=== PATIENT | male | born 1990 | race Two or more races ===

== ENCOUNTER 2023-12-17 03:55 | Emergency (ER) | payer SELFPAY ==
[~2023-12-17] VITALS: Ht 167.6 cm; Wt 79.4 kg
[2023-12-17 05:06] VITALS: BP 168/49; TEMP 98.4; O2SAT 99
== END 2023-12-17 05:56 | disposition home or self-care (01) ==
LOC: ER 03:59
DX: M79.10 Myalgia, unspecified site (principal)